=== PATIENT | female | born 1995 ===

== ENCOUNTER 2022-05-19 19:01 | Emergency (ER) | payer MEDICAID ==
[~2022-05-19] VITALS: Ht 170.2 cm; Wt 94.1 kg
[2022-05-19 19:35] VITALS: BP 103/61
== END 2022-05-19 22:17 | disposition left against medical advice (07) ==
LOC: ER 19:02
DX: R10.2 Pelvic and perineal pain (principal); Z53.21 Procedure and treatment not carried out due to patient leaving prior to being seen by health care provider